=== PATIENT | female | born 1935 | race Caucasian/White ===

== ENCOUNTER 2022-05-20 11:24 | Emergency (ER) | payer OTHER ==
[~2022-05-20] VITALS: Ht 157.5 cm; Wt 68.0 kg
--- NOTE | 2022-05-20 11:26 | NUR ---
BIBRA99 [facility] [phone],PER STAFF "PATIENT VERBALIZED SHE SEEMS TO BE SHORT OF BREATH, 88% O2 SAT", 96%RA UPON ARRIVAL IN ED. TO ER BED 6, HOOKED TO [facility], CHANGED TO HOSP GOWN, WARM BLANKET PROVIDED. PATIENT AAOx2. BREATHING EVEN AND UNLABORED. PATIENT AT 96% O2 SATURATION AT ROOM AIR. Addendum: 05/20/22 at 1248 by MAYKEL BIBRA99 [facility] [phone],PER STAFF "PATIENT VERBALIZED SHE SEEMS TO BE SHORT OF BREATH, 88% O2 SAT", 80%RA UPON ARRIVAL IN ED. TO ER BED 6, HOOKED TO MONITOR, PLACED AT 2LPM O2 VIA NC, O2 SATURATION AT 99% AFTER. CHANGED TO HOSP GOWN, WARM BLANKET PROVIDED. PATIENT AAOx2. BREATHING EVEN AND UNLABORED.
--- NOTE | 2022-05-20 11:47 | NUR ---
DR ROCHE AT BEDSIDE
[2022-05-20 12:49] LABS: BASOPHILS # (AUTO) 0.1 K/uL (0.0-0.2); BASOPHILS % (AUTO) 0.7 % (0.0-2.0); EOSINOPHILS % (AUTO) 0.7 % (0.0-6.0); HEMATOCRIT 26 % (33-45); HEMOGLOBIN 7.5 g/dL (11.5-14.8); LYMPHOCYTES # (AUTO) 1.7 K/uL (0.8-4.8); LYMPHOCYTES % (AUTO) 16.7 % (20.0-44.0); MEAN CORPUSCULAR HGB CONC 29 g/dl (31.0-36.0); MEAN CORPUSCULAR VOLUME 59 fL (82-100); MONOCYTES # (AUTO) 0.6 K/uL (0.1-1.30); MONOCYTES % (AUTO) 5.5 % (2.0-12.0); NEUTROPHILS # (AUTO) 7.9 K/uL (1.8-8.9); NEUTROPHILS % (AUTO) 76.4 % (43.0-81.0); PLATELET COUNT (AUTO) 486 K/uL (150-450); RED BLOOD CELL COUNT(AUTO) 4.35 MIL/uL (4.0-5.2); WHITE BLOOD COUNT (AUTO) 10.3 K/uL (4.3-11.0)
[2022-05-20 13:14] LABS: CALCIUM, SERUM 8.7 mg/dL (8.5-10.1); CARBON DIOXIDE 26 mmol/L (21-32); CHLORIDE 107 mmol/L (98-107); CREATININE 1.1 mg/dL (0.6-1.3); GLUCOSE 98 mg/dL (74-106); POTASSIUM 4.1 mmol/L (3.5-5.1); SODIUM SERUM 141 mmol/L (136-145); UREA NITROGEN, BLOOD 19 mg/dL (7-18)
[2022-05-20 13:29] LABS: ALANINE AMINOTRANSFERASE 14 U/L (12-78); ALBUMIN 2.9 g/dL (3.4-5.0); ALKALINE PHOSPHATASE 85 U/L (46-116); ASPARTATE AMINOTRANSFERASE 24 U/L (15-37); BILIRUBIN,DIRECT 0.1 mg/dL (0.0-0.2); BILIRUBIN,TOTAL 0.4 mg/dL (0.2-1.0); TOTAL PROTEIN, SERUM 7.4 g/dL (6.4-8.2)
[2022-05-20 13:34] LABS: EOSINOPHILS % (MANUAL) 1 % (0-4); LYMPHOCYTES % (MANUAL) 19 % (16-48); MONOCYTES % (MANUAL) 2 % (0-11.0); NEUTROPHILS % (MANUAL) 78 (42-76)
[2022-05-20] MEDS ORDERED: ASPIRIN 81 MG TAB.CHEW ONE (13:50)
--- NOTE | 2022-05-20 13:53 | NUR ---
COVID SWAB COLLECTED AND SENT TO LAB
[2022-05-20] MEDS ORDERED: ASPIRIN 81 MG TAB.CHEW PO ONE (14:00)
--- NOTE | 2022-05-20 14:14 | NUR ---
DOROTEO EPRP PAGED.
--- NOTE | 2022-05-20 14:22 | NUR ---
DOROTEO STANTON SPEAKING WITH DR. ROCHE ON THE PHONE.
--- NOTE | 2022-05-20 14:37 | NUR ---
NURSE IN CHARGE AT [facility] NOT AVAILABLE AT THIS TIME FOR MEDICATION INQUIRY. WILL CALL IN 10MINS.
[2022-05-20] MEDS ORDERED: FUROSEMIDE 40 MG/4 ML VIAL ONE (14:39)
[2022-05-20] MEDS ORDERED: FUROSEMIDE 40 MG/4 ML VIAL IV ONE (15:00)
--- NOTE | 2022-05-20 15:24 | NUR ---
PER TAM JACKSON AT [facility], PT IS TAKING PRADAXA AND LAST DOSE WAS GIVEN TODAY IN THE MORNING. DR. ROCHE MADE AWARE.
--- NOTE | 2022-05-20 17:21 | NUR ---
PT ACCEPTED AT [facility]. TELEMETRY UNIT [phone] ALS ETA 1815 [facility]IA [facility].
[2022-05-20 17:55] VITALS: BP 104/52
--- NOTE | 2022-05-20 17:57 | NUR ---
REPORT GIVEN TO LISSETTE TURCIOS FOR [facility]
--- NOTE | 2022-05-20 18:24 | NUR ---
PICKED UP BY TRANSPORT IN STABLE CONDITION
== END 2022-05-20 18:26 | disposition short-term general hospital (02) ==
LOC: EDBD 11:26 → ER 11:26
DX: I21.4 Non-ST elevation (NSTEMI) myocardial infarction (principal); I50.30 Unspecified diastolic (congestive) heart failure; Z79.02 Long term (current) use of antithrombotics/antiplatelets; D64.9 Anemia, unspecified; K21.9 Gastro-esophageal reflux disease without esophagitis; F03.90 Unspecified dementia, unspecified severity, without behavioral disturbance, psychotic disturbance, mood disturbance, and anxiety; I35.2 Nonrheumatic aortic (valve) stenosis with insufficiency; F32.A Depression, unspecified; R94.31 Abnormal electrocardiogram [ECG] [EKG]; M32.9 Systemic lupus erythematosus, unspecified; I48.91 Unspecified atrial fibrillation; Z66 Do not resuscitate; Z20.822 Contact with and (suspected) exposure to COVID-19
CPT/HCPCS: 99291; 93307; 96374; 70450; 71045; 87426; 93005 ×2; 85025; 80048; 80076; 85378; 36415; 84484 ×2; 85730; 83880; 85007; J1940; C9803